=== PATIENT | male | born 1955 | race Caucasian/White ===

== ENCOUNTER 2016-09-05 20:04 | Emergency (ER) | payer OTHER | END 2016-09-05 22:25 | disposition home or self-care (01) | LOC: ER1 20:04 | DX: S93.491A Sprain of other ligament of right ankle, initial encounter (principal); S80.01XA Contusion of right knee, initial encounter; X50.1XXA Overexertion from prolonged static or awkward postures, initial encounter; Y92.69 Other specified industrial and construction area as the place of occurrence of the external cause; Y99.0 Civilian activity done for income or pay | CPT/HCPCS: 73564; 73590; 73610; 73630; 99283 ==